=== PATIENT | female | born 1965 | race Caucasian/White ===

== ENCOUNTER 2022-02-05 13:19 | Day surgery (SDC) | payer OTHER ==
--- NOTE | 2022-02-05 10:24 | HP ---
HISTORY OF PRESENT ILLNESS: This is a patient who presents for EGD and colonoscopy. She was having abdominal pain, nausea and belching worse after she eats. She has taken Tums as well as Pepto-Bismol for this and has continued to have pain and so she came to see me for this. She denies any reflux. She is not having any bloody stools. She has no chest pain, no shortness of breath, no cough, no hematuria, no vaginal bleeding and no other symptoms other than irregular bowel movements. She was also taking Protonix daily to no avail. PAST MEDICAL HISTORY: Gastroesophageal reflux disease, anxiety, depression and hypertension. PAST SURGICAL HSTORY: Tonsillectomy, L-5 back surgery. MEDICATIONS: Medications reviewed in the chart in medication reconciliation. ALLERGIES: SULFA. PHYSICAL EXAMINATION: GENERAL: No acute distress. CVS: Regular rate and rhythm. PULMONARY: Nonlabored. ABDOMEN: Soft, mildly tender diffusely and nondistended. EXTREMITIES: Normal. DIAGNOSIS: Abdominal pain diffuse and change in bowel function. PLAN: EGD and colonoscopy. I have also added Carafate preoperatively.
[~2022-02-05 13:19] MED LIST: Lactated Ringers 1,000 ML IV ONE; Lactated Ringers 1,000 ML IV SCH
[2022-02-05] MEDS ORDERED: Versed 2 MG/2 ML Injection ONE (15:31)
[2022-02-05] MEDS ORDERED: DIPRIVAN 200 MG/20 ML IV ONE ×4 (15:31→16:19)
[2022-02-05] MEDS ORDERED: Lactated Ringers 1,000 ML IV ONE (15:58)
[2022-02-05 17:29] VITALS: BP 133/74; PULSE 57; O2SAT 97
--- NOTE | 2022-02-06 08:40 | OP ---
PROCEDURE DATE/TIME: 02/05/2022 1529 PREOPERATIVE DIAGNOSIS: Diffuse abdominal pain. POSTOPERATIVE DIAGNOSES: 1) Healed peptic ulcer disease. 2) Residual gastritis. 3) Gastroesophageal reflux disease. 4) Gastric polyps. 5) Colon polyp. 6) Mild diverticulosis. PROCEDURES: 1) EGD with hot snare gastric polypectomy and biopsy. 2) Colonoscopy with cold forceps polypectomy. PROCEDURE PERFORMED BY: Leeann Oliveros M.D. ANESTHESIA: MAC. ESTIMATED BLOOD LOSS: Minimal. COMPLICATIONS: None. SPECIMENS: 1) Gastric antral biopsy. 2) Gastric polyp. 3) Ascending colon polyp. HISTORY: This is a 56-year-old female who is having diffuse abdominal pain. She was taking medication for her joints and actually today she reports that even though she is still having some abdominal pain it has improved. We are holding that medication. We have discussed the risks, benefits, alternatives regarding EGD and colonoscopy. She would like to proceed. The H&P and consent have all reviewed and confirmed with her. DESCRIPTION OF PROCEDURE: She was then brought back to the endoscopy suite, laid in the left lateral decubitus position. A complete time out performed. First, the scope was inserted into the mouth, oropharynx, down into the esophagus, stomach and duodenum. The duodenum looked normal. The scope was advanced to approximately the level of the second portion. As the scope was withdrawn, we took a nice look. I did not find any issues in the duodenum. In the stomach the patient has four erythematous sites that look like they could have been superficial ulcers that have healed. I suspect these are the biggest culprit for her pain. These do not have any active ulcerations now. There is only residual gastritis remaining here. I took biopsies of the two most significant sites and sent these for pathology as well as Helicobacter pylori. These sites were hemostatic. On retroflex view there is no significant hiatal hernia. She does have multiple gastric polyps. They are all very tiny and benign appearing except one that is slightly larger and pedunculated this is about 6 to 7 mm in size which was taken with a hot snare in entirety, hemostatic, suctioned into a trap and sent to pathology as "Upper gastric body polyp". There were no other residual findings. The scope was then fully withdrawn into the distal esophagus. Her mucosa here looked healthy. She does have a small amount of active lower esophageal reflux. There is no sign of Rose's. She does not have any significant hiatal hernia but she does have a slight physiologic weakness here and then the scope was fully removed. No other findings in the esophagus. She tolerated the procedure well. There were no immediate complications. She was then repositioned for colonoscopy. First, a rectal exam was done and this was normal. There were no significant masses or concerns. The scope was then inserted. It was gently advanced to the level of the cecum. We did have to utilize some gentle abdominal pressure and with this we are able to easily navigate the scope to the cecum. The appendiceal orifice and ileocecal valve were visualized and these were normal. There was a small amount of liquid stool that was irrigated. Overall the prep was good. The scope was then carefully withdrawn taking a circumferential view. She had multiple small diverticular pockets. These were few in number. She also had one polyp in the ascending colon which was sessile and approximately 2 mm taken in entirety with cold forceps retrieved and sent for pathology this site looked hemostatic and then outside of this the mucosa looked healthy. There were no other findings. The scope was withdrawn to the level of the rectum this was normal and then the scope is fully removed after desufflating. The patient tolerated the procedure very well. There were no immediate complications. Our plan would be to continue the proton pump inhibitor that she is already taking. I would also encourage lifestyle and dietary changes which I have discussed with her family. We will await our biopsy results. She can have an EGD on an as needed basis. She will need another colonoscopy in approximately ten years for surveillance pending her pathology results. She will follow up with me as an outpatient for final pathology review and final plan.
== END 2022-02-05 17:20 | disposition home or self-care (01) ==
LOC: SDC 13:19
PROVIDERS: ATTEND Surgery
DX: D12.2 Benign neoplasm of ascending colon (principal); K31.7 Polyp of stomach and duodenum; R10.84 Generalized abdominal pain; Z87.11 Personal history of peptic ulcer disease; K29.70 Gastritis, unspecified, without bleeding; K21.9 Gastro-esophageal reflux disease without esophagitis; K57.30 Diverticulosis of large intestine without perforation or abscess without bleeding
CPT/HCPCS: J2250; J2704